=== PATIENT | female | born 1990 | race African-American/Black ===

== ENCOUNTER 2017-05-07 22:00 | Emergency (ER) | payer SELFPAY | END 2017-05-07 22:11 | disposition left against medical advice (07) | LOC: ER 22:08 | DX: R10.9 Unspecified abdominal pain (principal); Z53.21 Procedure and treatment not carried out due to patient leaving prior to being seen by health care provider ==

== ENCOUNTER 2017-05-27 18:03 | Emergency (ER) | payer SELFPAY | END 2017-05-27 19:02 | disposition left against medical advice (07) | LOC: ER 18:18 | DX: R10.9 Unspecified abdominal pain (principal); Z53.21 Procedure and treatment not carried out due to patient leaving prior to being seen by health care provider ==

== ENCOUNTER 2021-08-31 03:14 | Emergency (ER) | payer SELFPAY ==
[~2021-08-31] VITALS: Ht 170.2 cm; Wt 77.0 kg
[2021-08-31 03:22] VITALS: BP 132/80
== END 2021-08-31 04:20 | disposition left against medical advice (07) ==
LOC: ER 03:24
DX: Z53.21 Procedure and treatment not carried out due to patient leaving prior to being seen by health care provider (principal)

== ENCOUNTER 2021-09-01 17:41 | Emergency (ER) | payer SELFPAY ==
[~2021-09-01] VITALS: Ht 165.1 cm; Wt 69.0 kg
[2021-09-01 17:44] VITALS: BP 122/86
== END 2021-09-01 18:05 | disposition home or self-care (01) ==
LOC: ER 17:41
DX: R10.9 Unspecified abdominal pain (principal); F99 Mental disorder, not otherwise specified
CPT/HCPCS: 99283

== ENCOUNTER 2021-09-09 13:16 | Emergency (ER) | payer SELFPAY ==
[~2021-09-09] VITALS: Ht 162.6 cm; Wt 52.0 kg
[2021-09-09 13:18] VITALS: BP 121/76
== END 2021-09-09 14:07 | disposition left against medical advice (07) ==
LOC: ER 13:16
DX: Z53.21 Procedure and treatment not carried out due to patient leaving prior to being seen by health care provider (principal)

== ENCOUNTER 2022-04-04 00:56 | Emergency (ER) | payer SELFPAY | END 2022-04-04 01:20 | disposition left against medical advice (07) | LOC: ER 00:56 | DX: Z53.21 Procedure and treatment not carried out due to patient leaving prior to being seen by health care provider (principal) ==

== ENCOUNTER 2023-01-26 23:55 | Emergency (ER) | payer MEDICAID ==
[~2023-01-26] VITALS: Ht 165.1 cm; Wt 61.0 kg
[2023-01-27] MEDS ORDERED: KETOROLAC 60MG/2ML VIAL IM STA (00:04)
[2023-01-27 00:08] VITALS: TEMP 98.9; O2SAT 97
[2023-01-27 00:45] LABS: CHLORIDE 103 mEq/L (98-107); INDEX HEMOLYSI 1 (1-3); INDEX ICTERIC 1 (1-4); INDEX LIPEMIC 1 (1-3); POTASSIUM 3.7 mEq/L (3.5-5.1); SODIUM 137 mEq/L (136-145)
[2023-01-27 00:53] LABS: ALANINE AMINOTRANSFERASE 27 IU/L (13-61); ALBUMIN 3.9 g/dL (3.4-5.0); ASPARTATE AMINOTRANSFERASE 26 IU/L (15-37); BILIRUBIN TOTAL 0.2 mg/dL (0.1-1.0); CALCIUM 8.8 mg/dL (8.5-10.1); CARBON DIOXIDE 28 mEq/L (21-32); CREATININE 0.7 mg/dL (0.6-1.3); GLUCOSE 105 mg/dL (70-105); HCG SCREEN NEGATIVE; PROTEIN TOTAL 8.3 g/dL (6.0-8.3); UREA NITROGEN BLOOD 13 mg/dL (7-21)
[2023-01-27 00:56] LABS: CLARITY URINE CLEAR (CLEAR); COLOR URINE YELLOW (YELLOW); GLUCOSE URINE NEGATIVE (NEGATIVE); KETONES URINE NEGATIVE (NEGATIVE); LEUKOCYTE ESTERASE URINE TRACE (NEGATIVE); NITRITE URINE NEGATIVE (NEGATIVE); OCCULT BLOOD URINE NEGATIVE (NEGATIVE); PH URINE 6.5 (4.5-8.0); PROTEIN URINE NEGATIVE (NEGATIVE); SPECIFIC GRAVITY URINE 1.022 (1.005-1.030); UROBILINOGEN URINE 0.2 E.U./dL (0.2-1.0)
[2023-01-27 00:59] LABS: BACTERIA URINE NONE SEEN; RBC URINE NONE SEEN /hpf (0-2); SQUAMOUS EPITHELIAL CELL URINE NONE SEEN /lpf (RARE/1+); YEAST URINE NONE SEEN
[2023-01-27 01:32] LABS: BASOPHILS % 0.5 % (0.0-2.0); EOSINOPHILS % 1.3 % (0.0-5.0); HEMATOCRIT. 41.6 % (36.0-48.0); HEMOGLOBIN. 14.6 g/dL (12.0-16.0); LYMPHOCYTES % 24.8 % (20.0-50.0); MEAN CORPUSCULAR HEMOGLOBIN 32.9 pg (28.0-32.0); MEAN CORPUSCULAR VOLUME 93.9 fL (81.0-99.0); MEAN PLATELET VOLUME 8.9 fl (7.4-10.4); MONOCYTES % 6.9 % (2.0-8.0); NEUTROPHILS % 66.5 % (40.0-76.0); PLATELET 223 x1000/uL (130-400); RED BLOOD CELL COUNT 4.43 mill/uL (4.2-5.4); RED CELL DISTRIBUTION WIDTH 13.2 % (11.6-14.6); WHITE BLOOD COUNT 8.8 x1000/uL (4.5-11.0)
[2023-01-27 01:38] VITALS: BP 110/79; PULSE 85; RESP 16
== END 2023-01-27 02:05 | disposition left against medical advice (07) ==
LOC: ER 23:55
DX: Z00.00 Encounter for general adult medical examination without abnormal findings (principal); R10.9 Unspecified abdominal pain; Z88.0 Allergy status to penicillin; Z91.040 Latex allergy status
CPT/HCPCS: 81025; 99283; 80053; 81003; 84703; 85025; 36415; 96372; J1885; Z7610

== ENCOUNTER 2023-02-06 03:08 | Emergency (ER) | payer OTHER, MEDICAID ==
[~2023-02-06] VITALS: Ht 162.6 cm; Wt 75.0 kg
[2023-02-06 03:15] VITALS: BP 101/69; PULSE 81; RESP 18; TEMP 98.4; O2SAT 98
== END 2023-02-06 11:18 | disposition left against medical advice (07) ==
LOC: ER 03:08
DX: Z53.21 Procedure and treatment not carried out due to patient leaving prior to being seen by health care provider (principal)
CPT/HCPCS: 99281

== ENCOUNTER 2023-02-07 03:55 | Emergency (ER) | payer OTHER, MEDICAID ==
[~2023-02-07] VITALS: Ht 170.2 cm; Wt 82.0 kg
[2023-02-07 04:06] VITALS: BP 125/83; PULSE 95; RESP 16; TEMP 98.1; O2SAT 100
== END 2023-02-07 05:10 | disposition left against medical advice (07) ==
LOC: ER 04:53
DX: Z53.21 Procedure and treatment not carried out due to patient leaving prior to being seen by health care provider (principal)
CPT/HCPCS: 99281

== ENCOUNTER 2023-03-19 02:53 | Emergency (ER) | payer OTHER, MEDICAID ==
[~2023-03-19] VITALS: Ht 172.7 cm; Wt 91.0 kg
[2023-03-19 02:57] VITALS: O2SAT 94
[2023-03-19 03:52] LABS: BASOPHILS % 0.9 % (0.0-2.0); EOSINOPHILS % 2.9 % (0.0-5.0); HEMATOCRIT. 39.7 % (36.0-48.0); HEMOGLOBIN. 13.1 g/dL (12.0-16.0); LYMPHOCYTES % 24.2 % (20.0-50.0); MEAN CORPUSCULAR HEMOGLOBIN 31.7 pg (28.0-32.0); MEAN CORPUSCULAR HGB CONC 33.1 g/dL (31.0-37.0); MEAN PLATELET VOLUME 8.2 fl (7.4-10.4); MONOCYTES % 4.5 % (2.0-8.0); NEUTROPHILS % 67.5 % (40.0-76.0); PLATELET 254 x1000/uL (130-400); RED BLOOD CELL COUNT 4.13 mill/uL (4.2-5.4); RED CELL DISTRIBUTION WIDTH 13.7 % (11.6-14.6)
[2023-03-19 04:01] LABS: CHLORIDE 110 mEq/L (98-107); INDEX HEMOLYSI 1 (1-3); INDEX ICTERIC 1 (1-4); INDEX LIPEMIC 1 (1-3); POTASSIUM 3.8 mEq/L (3.5-5.1); SODIUM 140 mEq/L (136-145)
[2023-03-19 04:08] LABS: ALANINE AMINOTRANSFERASE 25 IU/L (13-61); ALBUMIN 3.5 g/dL (3.4-5.0); ASPARTATE AMINOTRANSFERASE 25 IU/L (15-37); BILIRUBIN TOTAL 0.3 mg/dL (0.1-1.0); CALCIUM 8.4 mg/dL (8.5-10.1); CARBON DIOXIDE 26 mEq/L (21-32); CREATININE 0.7 mg/dL (0.6-1.3); GLUCOSE 82 mg/dL (70-105); PROTEIN TOTAL 7.8 g/dL (6.0-8.3); UREA NITROGEN BLOOD 11 mg/dL (7-21)
[2023-03-19 04:22] LABS: CLARITY URINE CLEAR (CLEAR); COLOR URINE YELLOW (YELLOW); GLUCOSE URINE NEGATIVE (NEGATIVE); KETONES URINE NEGATIVE (NEGATIVE); LEUKOCYTE ESTERASE URINE 1+ (NEGATIVE); NITRITE URINE NEGATIVE (NEGATIVE); OCCULT BLOOD URINE NEGATIVE (NEGATIVE); PH URINE 5.5 (4.5-8.0); PROTEIN URINE NEGATIVE (NEGATIVE); SPECIFIC GRAVITY URINE 1.023 (1.005-1.030); UROBILINOGEN URINE 0.2 E.U./dL (0.2-1.0)
[2023-03-19 04:44] LABS: HCG SCREEN NEGATIVE
[2023-03-19 04:49] LABS: *AMPHETAMINES SCREEN URINE NEGATIVE (NEGATIVE); *BARBITURATES SCREEN URINE NEGATIVE (NEGATIVE); *BENZODIAZEPINES SCREEN URINE NEGATIVE (NEGATIVE); *COCAINE SCREEN URINE NEGATIVE (NEGATIVE); CANNABINOID URINE SCREEN NEGATIVE (NEGATIVE); ECSTASY MDMA SCREEN URINE NEGATIVE (NEGATIVE); OPIATES URINE SCREEN NEGATIVE (NEGATIVE); PHENCYCLIDINE URINE SCREEN NEGATIVE (NEGATIVE)
[2023-03-19 05:08] LABS: BACTERIA URINE NONE SEEN; RBC URINE 0-2 /hpf (0-2); SQUAMOUS EPITHELIAL CELL URINE FEW /lpf (RARE/1+); WBC URINE 0-2 /hpf (0-2)
[2023-03-19] MEDS ORDERED: IBUPROFEN 600MG TABLET PO ONE (05:45)
[2023-03-19] MEDS ORDERED: ACETAMINOPHEN 325MG TABLET PO ONE (09:15)
[2023-03-19 09:25] VITALS: BP 119/65; PULSE 64; RESP 18; TEMP 98.5
[2023-03-19] MEDS ORDERED: KETOROLAC 15MG/ML VIAL IM ONE (09:30)
== END 2023-03-19 09:57 | disposition left against medical advice (07) ==
LOC: ER 02:53
DX: N83.202 Unspecified ovarian cyst, left side (principal)
CPT/HCPCS: 99285; 76830; 76856; 80053; 80305; 81025; 84703; 83690; 85025; 36415; 96372; 81003; J1885